=== PATIENT | male | born 1995 | race Caucasian/White ===

== ENCOUNTER 2023-12-09 20:16 | Emergency (ER) | payer OTHER ==
[2023-12-09] MEDS ORDERED: DIPHTH,PERTUSS(ACELL),TET 0.5 ML DISP.SYRIN IM ONE ×2 (20:20→20:22)
[2023-12-09 20:50] VITALS: BP 150/96; PULSE 86; RESP 16; TEMP 98; BMI 23.3
== END 2023-12-09 20:40 | disposition home or self-care (01) ==
LOC: FER 20:16
PROC: 0HQGXZZ Repair Left Hand Skin, External Approach (ICD-10-PCS; principal; 2023-12-09)
PROC: 3E0234Z Introduction of Serum, Toxoid and Vaccine into Muscle, Percutaneous Approach (ICD-10-PCS; 2023-12-09)
DX: S61.412A Laceration without foreign body of left hand, initial encounter (principal); W26.0XXA Contact with knife, initial encounter; Y99.0 Civilian activity done for income or pay; Y92.9 Unspecified place or not applicable
CPT/HCPCS: 90715; 99283-25